=== PATIENT | male | born 1955 | race Caucasian/White ===

== ENCOUNTER → 2017-11-09 | Outpatient (CLI) | payer OTHER ==
[~2017-11-09] MED LIST: ALL DAY ALLERGY10 M1 PO; AMIO200 PO; ASPI81CH PO; ASPI81EC PO; CALCAVITD PO; CALCAVITDA PO; CARB200 PO; CARB200ER PO; CARV25 PO; CARV3.125 PO; CARV6.25 PO; CODACE30 PO; CYCL10 PO; Chest Congesti400 MG PO; DIAZ5 PO; DOCU100 PO; FAMO20 PO; FURO40 PO; HYDACE5 PO; IBUP800 PO; Keppra1000 MG PO; LEVE500; LEVE500 PO; LISI5 PO; METF500 PO; METO25ER PO; MULVITMIND; MULVITMIND PO; NAPR500 PO; POTCHL20ER PO; PRAV20 PO; PRED10 PO; PROP150 PO; SOTALOL PO; SPIR25 PO; STOOL SOFTNER; Toprol Xl50 MG PO; [UNRECOGNIZED DRUG - OTHER]
[2017-11-09 13:35] LABS: Percent Saturation 39.1 % (20.0-50.0)
== END | disposition home or self-care (01) ==
LOC: LAB 12:59
PROVIDERS: Internal Medicine Hematology & Oncology
DX: E83.118 Other hemochromatosis (principal)
CPT/HCPCS: 82728; 83540; 83550

== ENCOUNTER → 2018-03-14 | Outpatient (CLI) | payer OTHER ==
[2018-03-14 11:41] LABS: BASOPHILS ABSOLUTE AUTO 0.03 K/mm3 (0.00-0.23); BASOPHILS PERCENT AUTO 0 % (0-2); EOSINOPHILS PERCENT AUTO 1 % (0-6); Hematocrit 45.8 % (37.0-53.0); Hemoglobin 15.4 g/dL (13.5-17.5); IMMATURE GRAN ABSOLUTE AUTO 0.01 K/mm3 (0.00-0.10); IMMATURE GRAN PERCENT AUTO 0 % (0-1); LYMPHOCYTES ABSOLUTE AUTO 3.14 K/mm3 (0.84-5.20); LYMPHOCYTES PERCENT AUTO 37 % (21-46); MONOCYTES ABSOLUTE AUTO 0.83 K/mm3 (0.16-1.47); MONOCYTES PERCENT AUTO 10 % (4-13); Mean Corpuscular HGB 31.3 pg (26.0-34.0); Mean Corpuscular HGB Conc 33.6 g/dL (31.5-36.5); Mean Corpuscular Volume 93 fL (80-100); Mean Platelet Volume 11.4 fL (9.1-12.4); NEUTROPHILS ABSOLUTE AUTO 4.43 K/mm3 (1.96-9.15); NEUTROPHILS PERCENT AUTO 52 % (41-73); Platelet Count 141 K/mm3 (150-400); RDW Coefficient Variation 12.5 % (11.7-14.2); RDW Standard Deviation 42.6 fL (35.1-46.3); Red Blood Cell Count 4.92 M/mm3 (4.30-5.90); White Blood Cell Count 8.54 K/mm3 (4.00-11.30)
[2018-03-14 11:56] LABS: Percent Saturation 43.8 % (20.0-50.0)
== END | disposition home or self-care (01) ==
LOC: LAB 11:34 → LAB SHORT 11:34
PROVIDERS: Internal Medicine Hematology & Oncology
DX: E83.118 Other hemochromatosis (principal)
CPT/HCPCS: 82728; 83540; 83550; 85025

== ENCOUNTER 2018-11-03 08:34 | Day surgery (SDC) | payer OTHER ==
[~2018-11-03] VITALS: Ht 167.6 cm; Wt 86.4 kg
== END 2018-11-03 12:20 | disposition home or self-care (01) ==
LOC: ORSCSDS 08:34
PROVIDERS: Internal Medicine Gastroenterology
PROC: 0DBL8ZX Excision of Transverse Colon, Via Natural or Artificial Opening Endoscopic, Diagnostic (ICD-10-PCS; principal; 2018-11-03 10:30)
PROC: 0DBH8ZX Excision of Cecum, Via Natural or Artificial Opening Endoscopic, Diagnostic (ICD-10-PCS; principal; 2018-11-03 10:30)
PROC: 0DJ08ZZ Inspection of Upper Intestinal Tract, Via Natural or Artificial Opening Endoscopic (ICD-10-PCS; principal; 2018-11-03 10:30)
DX: Z12.11 Encounter for screening for malignant neoplasm of colon (principal); I85.00 Esophageal varices without bleeding; D12.0 Benign neoplasm of cecum; D12.3 Benign neoplasm of transverse colon; K57.30 Diverticulosis of large intestine without perforation or abscess without bleeding; K64.8 Other hemorrhoids; B19.20 Unspecified viral hepatitis C without hepatic coma; E11.9 Type 2 diabetes mellitus without complications; G47.33 Obstructive sleep apnea (adult) (pediatric); I10 Essential (primary) hypertension; I25.2 Old myocardial infarction; Z87.891 Personal history of nicotine dependence; Z79.899 Other long term (current) drug therapy; Z79.82 Long term (current) use of aspirin
CPT/HCPCS: 82947; 88305; J1980; J2370; J7120

== ENCOUNTER → 2019-06-14 | Outpatient (CLI) | payer OTHER ==
[~2019-06-14] MED LIST changes: +Flonase 0.05% N16 GM; +Mucinex600 MG PO
[2019-06-14 13:00] LABS: Percent Saturation 43.1 % (20.0-50.0)
== END | disposition home or self-care (01) ==
LOC: LAB SHORT 10:35 → LAB 10:35
PROVIDERS: Internal Medicine Hematology & Oncology
DX: D64.9 Anemia, unspecified (principal)
CPT/HCPCS: 36415; 82728; 83540; 83550

== ENCOUNTER 2019-07-16 13:06 | Emergency (ER) | payer OTHER ==
[~2019-07-16] VITALS: Ht 167.6 cm; Wt 88.5 kg
[~2019-07-16 13:06] MED LIST changes: -Flonase 0.05% N16 GM; -Mucinex600 MG PO
[2019-07-16] MEDS ORDERED: Flonase 0.05% N16 GM (14:56)
[2019-07-16] MEDS ORDERED: Mucinex600 MG PO (14:56)
== END 2019-07-16 15:11 | disposition home or self-care (01) ==
LOC: ER 13:06
DX: S09.90XA Unspecified injury of head, initial encounter (principal); J32.9 Chronic sinusitis, unspecified; I50.9 Heart failure, unspecified; Z87.891 Personal history of nicotine dependence; Z88.5 Allergy status to narcotic agent; Z88.8 Allergy status to other drugs, medicaments and biological substances; Z79.899 Other long term (current) drug therapy; Z79.82 Long term (current) use of aspirin; W22.8XXA Striking against or struck by other objects, initial encounter
CPT/HCPCS: 70450; 99283-25

== ENCOUNTER → 2019-10-11 | Outpatient (CLI) | payer OTHER ==
[~2019-10-11] MED LIST changes: +Flonase 0.05% N16 GM; +Mucinex600 MG PO; +Zithromax250 MG PO
[2019-10-11 13:43] LABS: Percent Saturation 23.6 % (20.0-50.0)
== END | disposition home or self-care (01) ==
LOC: LAB SHORT 10:25 → LAB 10:25
PROVIDERS: Internal Medicine Hematology & Oncology
DX: E83.118 Other hemochromatosis (principal)
CPT/HCPCS: 83540; 83550

== ENCOUNTER 2019-11-05 10:28 | Emergency (ER) | payer OTHER ==
[~2019-11-05] VITALS: Ht 167.6 cm; Wt 90.7 kg
[~2019-11-05 10:28] MED LIST changes: -Zithromax250 MG PO
[2019-11-05] MEDS ORDERED: Zithromax250 MG PO (11:25)
== END 2019-11-05 11:40 | disposition home or self-care (01) ==
LOC: ER 10:28
DX: J18.9 Pneumonia, unspecified organism (principal); I50.9 Heart failure, unspecified; R56.9 Unspecified convulsions; Z88.8 Allergy status to other drugs, medicaments and biological substances; Z88.5 Allergy status to narcotic agent; Z79.899 Other long term (current) drug therapy; Z79.82 Long term (current) use of aspirin; Z87.891 Personal history of nicotine dependence
CPT/HCPCS: 71046; 99283-25

== ENCOUNTER → 2020-01-24 | Outpatient (CLI) | payer OTHER ==
[~2020-01-24] MED LIST changes: +GABA300 PO; +Zithromax250 MG PO
[2020-01-24 12:31] LABS: Percent Saturation 36.1 % (20.0-50.0)
== END | disposition home or self-care (01) ==
LOC: LAB SHORT 12:00 → LAB 12:00
PROVIDERS: Internal Medicine Hematology & Oncology
DX: E83.118 Other hemochromatosis (principal)
CPT/HCPCS: 83540; 83550

== ENCOUNTER 2020-05-02 12:37 | Day surgery (SDC) | payer OTHER ==
[~2020-05-02] VITALS: Ht 167.6 cm; Wt 84.0 kg
[2020-05-02] MEDS ORDERED: PROP10 (13:08)
== END 2020-05-02 14:18 | disposition home or self-care (01) ==
LOC: ORSCSDS 12:37
PROVIDERS: Internal Medicine Gastroenterology
PROC: 0DJ08ZZ Inspection of Upper Intestinal Tract, Via Natural or Artificial Opening Endoscopic (ICD-10-PCS; principal; 2020-05-02 13:45)
DX: K74.60 Unspecified cirrhosis of liver (principal); Z13.810 Encounter for screening for upper gastrointestinal disorder; I85.00 Esophageal varices without bleeding; K29.70 Gastritis, unspecified, without bleeding; I10 Essential (primary) hypertension; G47.33 Obstructive sleep apnea (adult) (pediatric); I25.2 Old myocardial infarction; K21.9 Gastro-esophageal reflux disease without esophagitis; E11.9 Type 2 diabetes mellitus without complications; Z87.891 Personal history of nicotine dependence; Z79.84 Long term (current) use of oral hypoglycemic drugs; Z79.899 Other long term (current) drug therapy
CPT/HCPCS: 82947; J2704; J7120

== ENCOUNTER → 2020-09-01 | Outpatient (CLI) | payer OTHER ==
[~2020-09-01] MED LIST changes: +PROP10
[2020-09-01 15:56] LABS: Percent Saturation 32.3 % (20.0-50.0)
== END | disposition home or self-care (01) ==
LOC: LAB 13:03 → LAB SHORT 13:03
PROVIDERS: Internal Medicine Hematology & Oncology
DX: Z14.8 Genetic carrier of other disease (principal)
CPT/HCPCS: 82728; 83540; 83550

== ENCOUNTER → 2020-11-04 | Outpatient (CLI) | payer OTHER ==
[~2020-11-04] MED LIST changes: +CALCIUM CIT 311 EACH PO; +CLOBETTC; +GABAPENTIN600 MG PO; +Inderal 20 mg T20 MG PO; +KEPPRA1000 M1 PO; +MULTIPLE VITAM1 EACH PO; +SUBVENITE150 M1 PO; +ZYRTEC10 M2 PO
[2020-11-04 17:42] LABS: BASOPHILS ABSOLUTE AUTO 0.03 K/mm3 (0.00-0.23); BASOPHILS PERCENT AUTO 0 % (0-2); EOSINOPHILS ABSOLUTE AUTO 0.23 K/mm3 (0.00-0.68); EOSINOPHILS PERCENT AUTO 3 % (0-6); Hematocrit 45.8 % (37.0-53.0); Hemoglobin 15.4 g/dL (13.5-17.5); IMMATURE GRAN ABSOLUTE AUTO 0.02 K/mm3 (0.00-0.10); IMMATURE GRAN PERCENT AUTO 0 % (0-1); LYMPHOCYTES ABSOLUTE AUTO 2.84 K/mm3 (0.84-5.20); LYMPHOCYTES PERCENT AUTO 37 % (21-46); MONOCYTES ABSOLUTE AUTO 0.75 K/mm3 (0.16-1.47); MONOCYTES PERCENT AUTO 10 % (4-13); Mean Corpuscular HGB 30.8 pg (26.0-34.0); Mean Corpuscular HGB Conc 33.6 g/dL (31.5-36.5); Mean Corpuscular Volume 92 fL (80-100); Mean Platelet Volume 12.5 fL (9.1-12.4); NEUTROPHILS ABSOLUTE AUTO 3.92 K/mm3 (1.96-9.15); NEUTROPHILS PERCENT AUTO 50 % (41-73); Platelet Count 129 K/mm3 (150-400); RDW Coefficient Variation 11.7 % (11.7-14.2); RDW Standard Deviation 39.1 fL (35.1-46.3); White Blood Cell Count 7.79 K/mm3 (4.00-11.30)
[2020-11-04 21:05] LABS: Alanine Aminotransfer (ALT/SGP 18 U/L (12-78); Albumin, Blood 4.5 g/dL (3.4-5.0); Albumin/Globulin Ratio 1.2 (0.8-1.8); Alk Phos 72 U/L (50-136); Anion Gap 8 mmol/L (6-16); Aspartate Aminotrans (AST/SGOT 25 U/L (12-37); Bilirubin, Total 0.5 mg/dL (0.1-1.0); Blood Urea Nitrogen 11 mg/dL (8-24); Bun/Creatinine Ratio 14.1 (12.0-20.0); CHOL/HDL RATIO 3.3; CO2, Blood 25 mmol/L (21-32); Calcium, Blood 10.2 mg/dL (8.5-10.1); Chloride, Blood 103 mmol/L (98-108); Cholesterol 147 mg/dL (50-200); Creatinine, Blood 0.78 mg/dL (0.60-1.20); Globulin, Blood 3.8 g/dL (2.2-4.0); Glomerular Filtration Rate >60 (60-); Glucose, Blood 85 mg/dL (70-99); HDL Cholesterol 45 mg/dL (>39); LDL/HDL RATIO 1.6; Low Density Lipoprotein Chol 74 mg/dL (0-110); Potassium, Blood 4.4 mmol/L (3.5-5.5); Sodium, Blood 136 mmol/L (136-145); Total Protein, Blood 8.3 g/dL (6.4-8.2); Triglycerides 141 mg/dL (30-160); Very Low Density Lipoprot Chol 28 mg/dL (6-32)
[2020-11-05 08:09] LABS: HIV SCREEN 4TH GENERATION WRFX Non Reactive (Non Reactive)
== END ==
LOC: LAB SHORT 11:50 → LAB 11:50
PROVIDERS: Family Medicine
DX: Z11.59 Encounter for screening for other viral diseases (principal); Z11.4 Encounter for screening for human immunodeficiency virus [HIV]; E13.9 Other specified diabetes mellitus without complications; E78.5 Hyperlipidemia, unspecified; I10 Essential (primary) hypertension; Z79.84 Long term (current) use of oral hypoglycemic drugs
CPT/HCPCS: 80053; 80061; 83036; 85025; 86803; 87389

== ENCOUNTER 2021-04-21 10:02 | Day surgery (SDC) | payer OTHER ==
[~2021-04-21] VITALS: Ht 167.6 cm; Wt 81.7 kg
== END 2021-04-21 11:22 | disposition home or self-care (01) ==
LOC: ORSCSDS 10:02
PROVIDERS: Internal Medicine Gastroenterology
PROC: 0DJ08ZZ Inspection of Upper Intestinal Tract, Via Natural or Artificial Opening Endoscopic (ICD-10-PCS; principal; 2021-04-21 14:00)
DX: K22.70 Barrett's esophagus without dysplasia (principal); E11.9 Type 2 diabetes mellitus without complications; G47.30 Sleep apnea, unspecified; K74.60 Unspecified cirrhosis of liver; Z86.19 Personal history of other infectious and parasitic diseases; I25.2 Old myocardial infarction; I10 Essential (primary) hypertension; G40.909 Epilepsy, unspecified, not intractable, without status epilepticus; K76.6 Portal hypertension; K31.89 Other diseases of stomach and duodenum; Z87.891 Personal history of nicotine dependence; Z79.84 Long term (current) use of oral hypoglycemic drugs; Z79.899 Other long term (current) drug therapy
CPT/HCPCS: 82947; J2704; J7120

== ENCOUNTER → 2021-06-17 | Outpatient (CLI) | payer OTHER ==
[2021-06-17 13:27] LABS: Iron Serum 97 ug/dL (65-175); Percent Saturation 31.4 % (20.0-50.0); Prostate Specific Antigen 0.235 ng/mL (0.000-4.000); Total Iron Binding Capacity 309 ug/dL (250-450)
== END | disposition home or self-care (01) ==
LOC: LAB 11:15 → LAB SHORT 11:15
PROVIDERS: Internal Medicine Hematology & Oncology
DX: Z12.5 Encounter for screening for malignant neoplasm of prostate (principal); E83.110 Hereditary hemochromatosis
CPT/HCPCS: 83540; 83550; G0103

== ENCOUNTER → 2022-09-23 | Outpatient (CLI) | payer OTHER ==
[2022-09-23 14:05] LABS: Percent Saturation 32.7 % (20.0-50.0)
== END | disposition home or self-care (01) ==
LOC: LAB 10:53 → LAB SHORT 10:53
PROVIDERS: Internal Medicine Hematology & Oncology
DX: E83.118 Other hemochromatosis (principal)
CPT/HCPCS: 82728; 83540; 83550

== ENCOUNTER 2023-02-16 13:43 | Day surgery (SDC) | payer OTHER ==
[~2023-02-16] VITALS: Ht 167.6 cm; Wt 84.0 kg
--- NOTE | 2023-02-16 15:13 | NUR ---
02/16/23 1513 RANDOLPH BERGMAN LIDOCAINE 4% NEBULIZER INH ADMINISTERED PRIOR TO ENDOSCOPY PER ORDERS FROM DR. HOPKINS.
[2023-02-16 16:29] VITALS: BP 104/74
== END 2023-02-16 16:10 | disposition home or self-care (01) ==
LOC: ORSCSDS 13:43
PROVIDERS: Internal Medicine Gastroenterology
PROC: 0DJ08ZZ Inspection of Upper Intestinal Tract, Via Natural or Artificial Opening Endoscopic (ICD-10-PCS; principal; 2023-02-16 15:15)
DX: K74.60 Unspecified cirrhosis of liver (principal); Z87.19 Personal history of other diseases of the digestive system; K76.6 Portal hypertension; E11.9 Type 2 diabetes mellitus without complications; I48.91 Unspecified atrial fibrillation; I25.10 Atherosclerotic heart disease of native coronary artery without angina pectoris; G47.33 Obstructive sleep apnea (adult) (pediatric); K31.89 Other diseases of stomach and duodenum; R56.9 Unspecified convulsions; B19.20 Unspecified viral hepatitis C without hepatic coma; I25.2 Old myocardial infarction; E66.9 Obesity, unspecified; Z68.29 Body mass index [BMI] 29.0-29.9, adult; F17.210 Nicotine dependence, cigarettes, uncomplicated; Z79.84 Long term (current) use of oral hypoglycemic drugs; Z79.899 Other long term (current) drug therapy
CPT/HCPCS: 82947; J0330; J0461; J2001; J2405; J2704; J7120; Q9968

== ENCOUNTER 2023-04-22 11:14 | Emergency (ER) | payer OTHER ==
[~2023-04-22] VITALS: Ht 167.6 cm; Wt 80.7 kg
[2023-04-22] MEDS ORDERED: ZYRTEC10 M2 PO (11:39)
[2023-04-22] MEDS ORDERED: DOCU100 PO (11:39)
[2023-04-22] MEDS ORDERED: Flonase 0.05% N16 GM (11:39)
[2023-04-22 12:00] VITALS: BP 106/61
[2023-04-22] MEDS ORDERED: CEPH500 PO (12:07)
== END 2023-04-22 12:28 | disposition home or self-care (01) ==
LOC: ER 11:14
DX: S90.212A Contusion of left great toe with damage to nail, initial encounter (principal); L08.9 Local infection of the skin and subcutaneous tissue, unspecified; G40.909 Epilepsy, unspecified, not intractable, without status epilepticus; B19.20 Unspecified viral hepatitis C without hepatic coma; Z88.8 Allergy status to other drugs, medicaments and biological substances; Z88.5 Allergy status to narcotic agent; Z79.899 Other long term (current) drug therapy; Z87.891 Personal history of nicotine dependence; X58.XXXA Exposure to other specified factors, initial encounter
CPT/HCPCS: 73660; 99283-25; A9270

== ENCOUNTER → 2023-05-16 | Outpatient (CLI) | payer OTHER ==
[~2023-05-16] MED LIST changes: +CEPH500 PO
[2023-05-19 10:09] LABS: COTININE Negative ng/mL (Cutoff=300)
== END | disposition home or self-care (01) ==
LOC: LAB SHORT 12:00 → LAB 12:00
PROVIDERS: Orthopaedic Surgery
DX: M16.12 Unilateral primary osteoarthritis, left hip (principal)

== ENCOUNTER 2023-05-27 14:20 | Emergency (ER) | payer OTHER ==
[~2023-05-27] VITALS: Ht 170.2 cm; Wt 81.7 kg
[2023-05-27 17:28] VITALS: BP 125/72
== END 2023-05-27 17:29 | disposition home or self-care (01) ==
LOC: ER 14:20
DX: S01.01XA Laceration without foreign body of scalp, initial encounter (principal); S50.312A Abrasion of left elbow, initial encounter; Z23 Encounter for immunization; W18.30XA Fall on same level, unspecified, initial encounter; Z88.5 Allergy status to narcotic agent; Z88.8 Allergy status to other drugs, medicaments and biological substances; Z79.84 Long term (current) use of oral hypoglycemic drugs; Z79.899 Other long term (current) drug therapy; Z87.891 Personal history of nicotine dependence; Z95.0 Presence of cardiac pacemaker; E11.9 Type 2 diabetes mellitus without complications; G47.30 Sleep apnea, unspecified; Z87.820 Personal history of traumatic brain injury; Z86.19 Personal history of other infectious and parasitic diseases
CPT/HCPCS: 12001; 70450; 90471; 90715; 99283-25

== ENCOUNTER 2023-07-05 11:42 | Emergency (ER) | payer OTHER ==
[~2023-07-05] VITALS: Ht 170.2 cm; Wt 81.7 kg
[2023-07-05 13:24] LABS: BASOPHILS ABSOLUTE AUTO 0.03 K/mm3 (0.00-0.23); BASOPHILS PERCENT AUTO 0 % (0-2); EOSINOPHILS ABSOLUTE AUTO 0.05 K/mm3 (0.00-0.68); EOSINOPHILS PERCENT AUTO 0 % (0-6); Hematocrit 39.4 % (37.0-53.0); Hemoglobin 13.8 g/dL (13.5-17.5); IMMATURE GRAN ABSOLUTE AUTO 0.03 K/mm3 (0.00-0.10); IMMATURE GRAN PERCENT AUTO 0 % (0-1); LYMPHOCYTES ABSOLUTE AUTO 3.06 K/mm3 (0.84-5.20); LYMPHOCYTES PERCENT AUTO 21 % (21-46); MONOCYTES ABSOLUTE AUTO 1.03 K/mm3 (0.16-1.47); MONOCYTES PERCENT AUTO 7 % (4-13); Mean Corpuscular HGB 31.2 pg (26.0-34.0); Mean Corpuscular Volume 89 fL (80-100); Mean Platelet Volume 10.7 fL (9.1-12.4); NEUTROPHILS ABSOLUTE AUTO 10.57 K/mm3 (1.96-9.15); NEUTROPHILS PERCENT AUTO 72 % (41-73); Platelet Count 152 K/mm3 (150-400); RDW Coefficient Variation 11.8 % (11.7-14.2); RDW Standard Deviation 37.7 fL (35.1-46.3); Red Blood Cell Count 4.42 M/mm3 (4.30-5.90); White Blood Cell Count 14.77 K/mm3 (4.00-11.30)
[2023-07-05 13:40] LABS: Bun/Creatinine Ratio 14.6 (12.0-20.0); Calcium, Blood 9.6 mg/dL (8.5-10.1); Creatinine, Blood 0.82 mg/dL (0.60-1.20); Potassium, Blood 4.2 mmol/L (3.5-5.5)
[2023-07-05 14:00] VITALS: BP 98/68
== END 2023-07-05 14:01 | disposition home or self-care (01) ==
LOC: ER 11:42
PROVIDERS: Student in an Organized Health Care Education/Training Program
DX: S70.02XA Contusion of left hip, initial encounter (principal); W18.39XA Other fall on same level, initial encounter; E11.9 Type 2 diabetes mellitus without complications; I50.9 Heart failure, unspecified; Z88.5 Allergy status to narcotic agent; Z88.8 Allergy status to other drugs, medicaments and biological substances; Z79.899 Other long term (current) drug therapy; Z79.84 Long term (current) use of oral hypoglycemic drugs; Z87.891 Personal history of nicotine dependence
CPT/HCPCS: 73502; 80048; 85025; 99284-25; A9270

== ENCOUNTER 2023-07-08 08:09 | Emergency (ER) | payer OTHER ==
[~2023-07-08] VITALS: Ht 167.6 cm; Wt 81.7 kg
[2023-07-08 10:47] LABS: BASOPHILS ABSOLUTE AUTO 0.03 K/mm3 (0.00-0.23); BASOPHILS PERCENT AUTO 0 % (0-2); EOSINOPHILS ABSOLUTE AUTO 0.06 K/mm3 (0.00-0.68); EOSINOPHILS PERCENT AUTO 1 % (0-6); Hematocrit 42.9 % (37.0-53.0); IMMATURE GRAN ABSOLUTE AUTO 0.04 K/mm3 (0.00-0.10); IMMATURE GRAN PERCENT AUTO 0 % (0-1); LYMPHOCYTES PERCENT AUTO 18 % (21-46); MONOCYTES ABSOLUTE AUTO 0.97 K/mm3 (0.16-1.47); MONOCYTES PERCENT AUTO 8 % (4-13); Mean Corpuscular Volume 89 fL (80-100); Mean Platelet Volume 10.8 fL (9.1-12.4); NEUTROPHILS ABSOLUTE AUTO 9.46 K/mm3 (1.96-9.15); NEUTROPHILS PERCENT AUTO 74 % (41-73); Platelet Count 188 K/mm3 (150-400); RDW Coefficient Variation 11.9 % (11.7-14.2); RDW Standard Deviation 37.6 fL (35.1-46.3); Red Blood Cell Count 4.84 M/mm3 (4.30-5.90); White Blood Cell Count 12.86 K/mm3 (4.00-11.30)
[2023-07-08 11:04] LABS: Albumin, Blood 4.3 g/dL (3.4-5.0); Albumin/Globulin Ratio 1.2 (0.8-1.8); Calcium, Blood 10.3 mg/dL (8.5-10.1); Creatinine, Blood 0.74 mg/dL (0.60-1.20); Globulin, Blood 3.6 g/dL (2.2-4.0); Potassium, Blood 3.6 mmol/L (3.5-5.5); Total Protein, Blood 7.9 g/dL (6.4-8.2)
[2023-07-08 11:34] VITALS: BP 116/61
== END 2023-07-08 12:42 | disposition home or self-care (01) ==
LOC: ER 08:09
PROVIDERS: Physician Assistant
DX: M25.552 Pain in left hip (principal); Z88.8 Allergy status to other drugs, medicaments and biological substances; Z88.5 Allergy status to narcotic agent; Z79.899 Other long term (current) drug therapy; Z79.84 Long term (current) use of oral hypoglycemic drugs; E11.9 Type 2 diabetes mellitus without complications; I50.9 Heart failure, unspecified; G47.30 Sleep apnea, unspecified; Z87.891 Personal history of nicotine dependence
CPT/HCPCS: 73502; 73700; 80053; 85025; 99285-25

== ENCOUNTER → 2024-04-30 | Outpatient (CLI) | payer OTHER ==
[~2024-04-30] MED LIST changes: +CLOP75 PO; +ELIQUIS5 M3 PO; +GABA800 PO; -GABAPENTIN600 MG PO; +MULVITA PO; +[UNRECOGNIZED DRUG - CODE] PO
[2024-04-30 18:40] LABS: Percent Saturation 19.4 % (20.0-50.0)
== END ==
LOC: LAB SHORT 12:48 → LAB 12:48
PROVIDERS: Internal Medicine Hematology & Oncology
DX: E83.118 Other hemochromatosis (principal)
CPT/HCPCS: 82728; 83540; 83550

== ENCOUNTER → 2024-07-30 | Outpatient (CLI) | payer OTHER ==
[2024-07-30 17:31] LABS: BASOPHILS ABSOLUTE AUTO 0.04 K/mm3 (0.00-0.23); BASOPHILS PERCENT AUTO 1 % (0-2); EOSINOPHILS ABSOLUTE AUTO 0.17 K/mm3 (0.00-0.68); EOSINOPHILS PERCENT AUTO 2 % (0-6); Hemoglobin 13.8 g/dL (13.5-17.5); IMMATURE GRAN ABSOLUTE AUTO 0.01 K/mm3 (0.00-0.10); IMMATURE GRAN PERCENT AUTO 0 % (0-1); LYMPHOCYTES ABSOLUTE AUTO 2.43 K/mm3 (0.84-5.20); LYMPHOCYTES PERCENT AUTO 33 % (21-46); MONOCYTES ABSOLUTE AUTO 0.67 K/mm3 (0.16-1.47); MONOCYTES PERCENT AUTO 9 % (4-13); Mean Corpuscular HGB 30.9 pg (26.0-34.0); Mean Corpuscular HGB Conc 33.7 g/dL (31.5-36.5); Mean Corpuscular Volume 92 fL (80-100); Mean Platelet Volume 12.7 fL (9.1-12.4); NEUTROPHILS ABSOLUTE AUTO 4.08 K/mm3 (1.96-9.15); NEUTROPHILS PERCENT AUTO 55 % (41-73); Platelet Count 143 K/mm3 (150-400); RDW Coefficient Variation 12.3 % (11.7-14.2); RDW Standard Deviation 40.8 fL (35.1-46.3); Red Blood Cell Count 4.47 M/mm3 (4.30-5.90)
== END | disposition home or self-care (01) ==
LOC: LAB SHORT 15:59 → LAB 15:59
PROVIDERS: Internal Medicine Hematology & Oncology
DX: E83.118 Other hemochromatosis (principal)
CPT/HCPCS: 85025

== ENCOUNTER → 2024-09-27 | Outpatient (CLI) | payer OTHER ==
[2024-09-27 16:55] LABS: Percent Saturation 26.3 % (20.0-50.0)
== END ==
LOC: LAB SHORT 15:22 → LAB 15:22
PROVIDERS: Internal Medicine Hematology & Oncology
DX: E83.110 Hereditary hemochromatosis (principal)
CPT/HCPCS: 82728; 83540; 83550

== ENCOUNTER 2024-11-16 13:48 | Emergency (ER) | payer OTHER ==
[~2024-11-16] VITALS: Ht 167.6 cm; Wt 73.5 kg
[2024-11-16 14:37] VITALS: BP 105/94
== END 2024-11-16 16:22 | disposition home or self-care (01) ==
LOC: ER 13:48
DX: K13.79 Other lesions of oral mucosa (principal); E11.9 Type 2 diabetes mellitus without complications; K74.60 Unspecified cirrhosis of liver; I50.9 Heart failure, unspecified; G47.30 Sleep apnea, unspecified; Z87.891 Personal history of nicotine dependence; Z88.8 Allergy status to other drugs, medicaments and biological substances; Z88.5 Allergy status to narcotic agent; Z79.84 Long term (current) use of oral hypoglycemic drugs; Z79.01 Long term (current) use of anticoagulants; Z79.82 Long term (current) use of aspirin; Z79.899 Other long term (current) drug therapy; Z59.89 Other problems related to housing and economic circumstances
CPT/HCPCS: 99282

== ENCOUNTER → 2024-12-31 | Outpatient (CLI) | payer OTHER | LOC: LAB 14:00 → LAB SHORT 14:00 | DX: E83.118 Other hemochromatosis (principal) | CPT/HCPCS: 82728 ==

== ENCOUNTER 2025-05-15 13:08 | Day surgery (SDC) | payer OTHER ==
[~2025-05-15] VITALS: Ht 167.6 cm; Wt 74.0 kg
[2025-05-15] MEDS ORDERED: INCRUSE ELLIPTA (13:45)
[2025-05-15] MEDS ORDERED: Benzocaine Oral Spray 0.5ML UD ONE (15:05)
[2025-05-15 16:22] VITALS: BP 115/74
== END 2025-05-15 16:27 | disposition home or self-care (01) ==
LOC: ORSCSDS 13:08
PROVIDERS: Specialist
PROC: 0DB68ZX Excision of Stomach, Via Natural or Artificial Opening Endoscopic, Diagnostic (ICD-10-PCS; principal; 2025-05-15 14:30)
DX: K70.30 Alcoholic cirrhosis of liver without ascites (principal); B19.20 Unspecified viral hepatitis C without hepatic coma; K29.70 Gastritis, unspecified, without bleeding; K44.9 Diaphragmatic hernia without obstruction or gangrene; K76.6 Portal hypertension; K31.89 Other diseases of stomach and duodenum; E83.119 Hemochromatosis, unspecified; Z86.73 Personal history of transient ischemic attack (TIA), and cerebral infarction without residual deficits; G47.33 Obstructive sleep apnea (adult) (pediatric); E11.9 Type 2 diabetes mellitus without complications; I10 Essential (primary) hypertension; Z79.82 Long term (current) use of aspirin; Z79.899 Other long term (current) drug therapy
CPT/HCPCS: 82947; 88305; 88342; A9270; J2704; J7120

== ENCOUNTER → 2025-08-01 | Outpatient (CLI) | payer OTHER ==
[~2025-08-01] MED LIST changes: +INCRUSE ELLIPTA
[2025-08-02 00:13] LABS: Ferritin, Serum 91.0 ng/mL (26-388); Total Iron Binding Capacity 354.0 ug/dL (250-450)
== END ==
LOC: LAB 11:13 → LAB SHORT 11:13
PROVIDERS: Internal Medicine Hematology & Oncology
DX: E61.1 Iron deficiency (principal)
CPT/HCPCS: 82728; 83540; 83550